=== PATIENT | female | born 1935 | race Caucasian/White ===

== ENCOUNTER 2016-07-15 09:43 | Outpatient (CLI) | payer MEDICARE, OTHER ==
[2015-11-20 17:09] VITALS: BP 122/53
== END 2016-07-15 09:44 ==
LOC: LAB 09:43
PROVIDERS: ATTEND Family Medicine
DX: R50.9 Fever, unspecified (principal)
CPT/HCPCS: 87400

== ENCOUNTER 2017-02-08 10:19 | Outpatient (CLI) | payer MEDICARE, OTHER ==
[2015-11-20 17:09] VITALS: BP 122/53
--- NOTE | 2017-02-08 15:43 | Diagnostic Imaging Report ---
[facility] [id number] [address] [facility] [address] [address] Report Submission Date: Feb 08, 2017 1:00:18 PM CDT Patient Study Name: ANIBAL SRINIVASAN Date: Feb 08, 2017 10:49:06 AM CDT Modality Type: CR Gender: F Description: CHEST : 37 Institution: [facility] Physician: TWILA Examination: PA and lateral chest. History: Evaluate lung norris. Comparison exam: None available. Findings: PA lateral chest demonstrate a normal cardiac and mediastinal silhouette. Vascular calcification involving the aortic arch. Chronic appearing interstitial changes. Mild haziness right inferior hilar region. No effusion. No blunting of the costophrenic margins. Osseous structures are appropriate for age. Lateral view demonstrates kyphosis. Impression: Chronic appearing interstitial changes. Suggestion for mild right inferior hilar infiltrate. Correlation with older exam is recommended when available. Electronically signed on Feb 08, 2017 1:00:18 PM CDT by: Elan BAEZ
== END 2017-02-08 10:20 ==
LOC: RAD 10:19 → EDSTATUS 11:10
PROVIDERS: ATTEND Family Medicine
DX: R05 Cough (principal); R68.89 Other general symptoms and signs
CPT/HCPCS: 71020